=== PATIENT | male | born 1990 | race African-American/Black ===

== ENCOUNTER 2020-02-20 10:44 | Day surgery (SDC) | payer OTHER ==
[~2020-02-20] VITALS: Ht 182.9 cm; Wt 104.1 kg
[~2020-02-20 10:44] MED LIST: LIDOCAINE 2% 100MG/5ML SDV (FOR ANES.) As Ordered ONE; NS 1,000 ML IV ONE
[2020-02-20] MEDS ORDERED: propofoL 200 MG/20 ML VIAL As Ordered ONE (11:03)
--- NOTE | 2020-02-20 12:15 | ROOR ---
Patient Name: Sophy Demarco Procedure Date: 02/20/2020 12:02 PM Date of : 1990 Age: 29 Room: [facility] Gender: Male Note Status: Finalized Procedure: Upper Endoscopy + Biopsies Indications: Heartburn, Exclusion of Helicobacter pylori Providers: Dalton Cardenas MD Referring MD: CRISTA ROMERO MD Requesting Provider: Medicines: Monitored Anesthesia Care Complications: No immediate complications. Procedure: Pre-Anesthesia Assessment: - The heart rate, respiratory rate, oxygen saturations, blood pressure, adequacy of pulmonary ventilation, and response to care were monitored throughout the procedure. The Endoscope was introduced through the mouth, and advanced to the second part of duodenum. The upper GI endoscopy was accomplished without difficulty. The patient tolerated the procedure well. Findings: The Z-line was regular and was found 40 cm from the incisors. No other significant abnormalities were identified in a careful examination of the stomach. Biopsies were taken with a cold forceps on the greater curvature of the stomach and in the gastric antrum for Helicobacter pylori testing. The exam of the duodenum was otherwise normal. Impression: - Z-line regular, 40 cm from the incisors. - Biopsies were taken with a cold forceps for Helicobacter pylori testing. - The examination was otherwise normal. Recommendation: - Patient has a contact number available for emergencies. The signs and symptoms of potential delayed complications were discussed with the patient. Return to normal activities tomorrow. Written discharge instructions were provided to the patient. - High fiber diet. - Discharge patient to home. - Follow an antireflux regimen. - Continue present medications. - Await pathology results. - Telephone GI clinic for pathology results in 1 week. - Return to referring physician. - The findings and recommendations were discussed with the patient. Dalton Cardenas MD Dalton Cardenas MD 02/20/2020 12:14:36 PM Electronically signed by Dalton Cardenas MD Number of Addenda: 0 Note Initiated On: 02/20/2020 12:02 PM Estimated Blood Loss: Estimated blood loss: none.
[2020-02-20 12:30] VITALS: BP 122/62
== END 2020-02-20 12:40 | disposition home or self-care (01) ==
LOC: M OPP 10:44
PROVIDERS: ATTEND Internal Medicine Gastroenterology
DX: R68.81 Early satiety (principal); R10.9 Unspecified abdominal pain; R12 Heartburn; D55.0 Anemia due to glucose-6-phosphate dehydrogenase [G6PD] deficiency; Z88.8 Allergy status to other drugs, medicaments and biological substances